=== PATIENT | female | born 1935 | race Caucasian/White ===

== ENCOUNTER 2020-07-15 17:22 | Inpatient (IN) | payer MEDICARE, BC, OTHER ==
--- NOTE | 2020-07-15 18:46 | RAD ---
LEFT FEMUR TWO VIEWS: History: Fall with femur pain. FINDINGS: The bones are diffusely demineralized. There is a spiral type fracture of the distal femoral shaft, m inimally displaced. IMPRESSION: Severe bony demineralization with spiral type fracture of the distal femoral shaft. POS: OFF
--- NOTE | 2020-07-15 18:51 | RAD ---
LEFT TIBIA/FIBULA TWO VIEWS: History: Fall from wheelchair. FINDINGS: The bones are demineralized. I do not see any signs of fracture or dislocation. Ankle joint is not op timally assessed on these views. IMPRESSION: Negative left tibia/fibula. POS: OFF
[2020-07-15 19:35] LABS: #Basophils 0.1 thou/uL (0.0-0.2); #Eosinphils 0.1 thou/uL (0.0-0.7); #Lymphocytes 2.3 thou/uL (1.20-3.40); #Neutrophils 4.6 thou/uL (1.40-6.50); %Basophils 0.7 % (0.0-1.0); %Eosinophils 1.7 % (0.0-10.0); %Lymphocytes 28.2 % (21.0-51.0); %Monocytes 12.5 % (0.0-10.0); %Neutrophils 56.9 % (42.0-75.0); Hemoglobin 7.6 g/dL (12.0-16.0); Mean Corpuscular HGB CONC 31.5 g/dL (32.0-36.0); Mean Corpuscular Hemoglobin 31.3 pg (27.0-31.0); Mean Corpuscular Volume 99.6 fL (78.0-98.0); Mean Platelet Volume 6.8 fL (7.4-10.4); Platelet Count 178 thou/uL (130-400); RBC Distribution Width 14.3 % (11.5-14.5); Red Blood Cell (RBC) Count 2.44 mill/uL (4.20-5.40); White Blood Cell (WBC) Count 8.1 thou/uL (4.8-10.8)
--- NOTE | 2020-07-15 19:35 | RAD ---
AP PELVIS: History: Fall, left distal femur fracture. FINDINGS: The bones are osteopenic. No acute fracture or dislocation identified. IMPRESSION: As above. POS: UMER
--- NOTE | 2020-07-15 19:39 | RAD ---
PORTABLE CHEST ONE VIEW: Date: 07-15-2020 Time: 7:09 p.m. History: Right femur fracture, pre-operative evaluation. FINDINGS: Comparison is made with exam of 01-31-17. The heart size is stable. The aorta is tortuous. The lungs are expanded without lobar consolidation, pneumothoraces, casandra pulmonary edema or pleural effusions. There are surgical clips in the left axil la. IMPRESSION: No acute process. POS: UMER
[2020-07-15 19:40] LABS: Prothrombin Time 13.1 sec (12.0-14.7)
[2020-07-15 19:41] LABS: PTT 35.7 sec (22.9-36.1)
[2020-07-15 19:57] LABS: ALT (SGPT) 10 U/L (8-55); AST (SGOT) 22 U/L (5-34); Albumin 2.9 g/dL (3.4-4.8); Alkaline Phosphatase 61 U/L (40-110); Anion Gap 15 mmol/L (10-20); BUN (Urea Nitrogen) 34 mg/dL (9.8-20.1); Bilirubin, Total 0.5 mg/dL (0.2-1.2); CK (CPK) 145 U/L (29-168); Calc. Creatinine Clearance 0 mL/min (70-130); Calcium 8.3 mg/dL (7.8-10.44); Carbon Dioxide 25 mmol/L (23-31); Chloride 109 mmol/L (98-107); Estimated GFR-MDRD 67; Globulin 2.4 g/dL (2.4-3.5); Glucose 115 mg/dL (83-110); Potassium 4.8 mmol/L (3.5-5.1); Protein, Total 5.3 g/dL (6.0-8.3); Sodium 144 mmol/L (136-145)
[2020-07-15] MEDS ORDERED: Dextrose 5% in Water 1,000 ML IV PRN (20:43)
[2020-07-15] MEDS ORDERED: hydrALAZINE 20 MG/ML VIAL SLOW IVP PRN (20:43)
[2020-07-15] MEDS ORDERED: Ondansetron PF 4 MG/2 ML Vial IVP PRN (20:43)
[2020-07-15] MEDS ORDERED: Morphine 2 MG/ML VIAL SLOW IVP PRN (20:43)
[2020-07-15] MEDS ORDERED: Ondansetron ODT 4 MG TAB PO PRN (20:43)
[2020-07-15] MEDS ORDERED: Dextrose 50% Abboject 50 ML SYRINGE SLOW IVP PRN (20:43)
[2020-07-15] MEDS ORDERED: Insulin Regular 300 UNITS/3 ML VIAL SC PRN ×2 (20:43)
[2020-07-15] MEDS ORDERED: traMADol HCl 50 MG TAB PO PRN (20:51)
[2020-07-15] MEDS ORDERED: Cyclobenzaprine 10 MG TAB PO PRN (20:51)
[2020-07-15 21:08] LABS: Magnesium 2.1 mg/dL (1.6-2.6); Phosphorus 3.7 mg/dL (2.3-4.7)
[2020-07-15] MEDS: Ascorbic Acid 500 mg Chewable Tablet PO SCH (22:24)
[2020-07-15] MEDS: Famotidine 20 MG TAB PO SCH (22:24)
[2020-07-15] MEDS: Senokot S 8.6-50 MG TAB PO SCH (22:24)
[2020-07-15] MEDS: Sodium Chloride 0.9% 1,000 ML IV SCH (22:24)
[2020-07-15] MEDS: Acetaminophen 500 MG TAB PO SCH (22:25)
[2020-07-15] MEDS: Gabapentin 100 MG CAP PO SCH (22:25)
--- NOTE | 2020-07-15 22:54 | HP ---
REQUESTING PHYSICIAN: Dr. Pacheco. CONSULTATIONS: Orthopedic surgery, Dr. Huynh. CHIEF COMPLAINT: Mechanical fall, left lower extremity pain. HISTORY OF PRESENT ILLNESS: This is an 84-year-old female with a past medical history of dementia, hypothyroidism, hypertension, restless legs syndrome, peripheral neuropathy, bipolar disorder, and depression. The patient lives at [facility] and was transferring from her wheelchair to bed when she lost her balance and fell onto her left leg. The patient had no loss of consciousness and did not hit her head. The fall was actually on Thursday and patient has had increased pain since. It was reported that the patient uses a walker to ambulate, although the patient states she does not ambulate and only uses a wheelchair. The patient is oriented to place. The patient unaware of her date and states that her last name as Saurav. The patient currently denies any pain at this time. REVIEW OF SYSTEMS: A 10-point review of systems is negative unless otherwise indicated in the above HPI. ALLERGIES: DENIES. MEDICATIONS: 1. Ativan 1 mg p.r.n. 2. Aricept 10 mg daily. 3. Depakote 125 mg p.o. b.i.d. 4. Aspirin 81 mg daily. 5. Losartan/hydrochlorothiazide 50/12.5 mg daily. 6. Melatonin 3 mg at bedtime. 7. Namenda 10 mg b.i.d. 8. Neurontin 100 mg b.i.d. 9. Potassium chloride 20 mEq daily. 10. Keflex 500 mg 4 times daily. Clindamycin 300 mg 4 times daily. PAST MEDICAL HISTORY: Hypothyroidism, hypertension, restless legs syndrome, dementia, peripheral neuropathy, peripheral vascular disease, bipolar and depression. SOCIAL HISTORY: The patient lives at [facility], denies illicit drug use. Denies smoking history. Denies alcohol use. PAST SURGICAL HISTORY: Unknown. PHYSICAL EXAMINATION: VITAL SIGNS: Temperature 98.5, blood pressure 97/55, pulse 84, respirations 20, 100% SpO2 on room air. GENERAL: Elderly female, pleasantly confused, in no acute distress. HEENT: Head is atraumatic and normocephalic. Mucous membranes are moist, trachea is midline, no cervical spine tenderness. RESPIRATORY: Equal chest rise and fall, bilateral breath sounds clear, no wheezing, rales or rhonchi. CARDIAC: Regular rate, regular rhythm, systolic murmur present. ABDOMEN: Soft, nontender, nondistended. EXTREMITIES: Neurovascularly intact x4, ecchymosis to left lower extremity, mild nonpitting lower leg edema. NEUROLOGIC: GCS 14, -1 for confusion. LABORATORY DATA: WBC 8.1, RBC 2.44, Hbg 7.6, Hct 24.3, Platelets 178, Sodium 144 , Potassium 4.8, BUN 34, Creatinine 0.81 DIAGNOSTICS: Left Tib/Fib no fracture, Left femur impression spiral type fracture of the distal femoral shaft. Pelvis Xray impression, left distal femur fracture, Chest XR impression, stable heart size, aorta is tortuous, no acute process. ASSESSMENT: 1. Status post mechanical fall with delayed presentation. 2. Left distal femur fracture. 3. History of hypertension, dementia, hypothyroidism, restless legs syndrome, peripheral neuropathy, peripheral vascular disease, bipolar and depression. PLAN: Admit to the surgical floor. Supportive care. Pain regimen. Bedrest until evaluation by Orthopedic Surgery. Iron and vitamin C for anemia. Will type and screen patient. The patient will be n.p.o. after midnight for possible surgery for repair with Orthopedic Surgery in the morning. PT and OT to evaluate and treat postop. The plan was discussed with the attending who agrees. Job ID: [id number] MTDD
[2020-07-16 01:40] VITALS: BMI 33.0
[2020-07-16] MEDS: Acetaminophen 500 MG TAB PO SCH ×4 (03:03→20:22)
[2020-07-16] MEDS: Sodium Chloride 0.9% 1,000 ML IV SCH ×3 (05:25→20:22)
[2020-07-16 05:46] LABS: #Eosinphils 0.1 thou/uL (0.0-0.7); #Monocytes 0.6 thou/uL (0.11-0.59); #Neutrophils 2.8 thou/uL (1.40-6.50); %Basophils 0.8 % (0.0-1.0); %Eosinophils 1.4 % (0.0-10.0); %Lymphocytes 36.4 % (21.0-51.0); %Monocytes 10.4 % (0.0-10.0); Hemoglobin 6.9 g/dL (12.0-16.0); Mean Corpuscular HGB CONC 31.3 g/dL (32.0-36.0); Mean Corpuscular Hemoglobin 30.8 pg (27.0-31.0); Mean Corpuscular Volume 98.6 fL (78.0-98.0); Mean Platelet Volume 6.6 fL (7.4-10.4); Platelet Count 164 thou/uL (130-400); RBC Distribution Width 14.2 % (11.5-14.5); Red Blood Cell (RBC) Count 2.23 mill/uL (4.20-5.40); White Blood Cell (WBC) Count 5.5 thou/uL (4.8-10.8)
[2020-07-16 06:06] LABS: Phosphorus 3.3 mg/dL (2.3-4.7)
[2020-07-16 06:15] LABS: Anion Gap 9 mmol/L (10-20); BUN (Urea Nitrogen) 31 mg/dL (9.8-20.1); Calc. Creatinine Clearance 72 mL/min (70-130); Calcium 7.9 mg/dL (7.8-10.44); Carbon Dioxide 27 mmol/L (23-31); Chloride 111 mmol/L (98-107); Estimated GFR-MDRD 75; Glucose 104 mg/dL (83-110); Potassium 4.1 mmol/L (3.5-5.1); Sodium 143 mmol/L (136-145)
[2020-07-16] MEDS ORDERED: Artificial Tear Sol 15 ML BOT EA EYE PRN (08:20)
[2020-07-16] MEDS: Ferrous Sulfate 325 MG TAB PO SCH ×2 (08:37→17:12)
[2020-07-16] MEDS: Senokot S 8.6-50 MG TAB PO SCH ×2 (08:37→20:28)
[2020-07-16] MEDS: Famotidine 20 MG TAB PO SCH ×2 (08:37→20:23)
[2020-07-16] MEDS: Ascorbic Acid 500 mg Chewable Tablet PO SCH ×2 (08:38→20:23)
[2020-07-16] MEDS: Gabapentin 100 MG CAP PO SCH ×3 (08:50→20:23)
[2020-07-16] MEDS: Polyethylene Glycol 3350 17 GM Packet PO SCH (08:50)
[2020-07-16] MEDS: DULoxetine 60 MG CAP PO SCH (09:52)
[2020-07-16] MEDS: Divalproex Sodium 250 MG (DR) TAB PO SCH ×2 (09:52→20:28)
[2020-07-16] MEDS: Tamsulosin HCl 0.4 MG CAP PO SCH (09:52)
[2020-07-16 10:21] LABS: Bilirubin Negative (Negative); Blood, Urine 1+ (Negative); Clarity Turbid (Clear); Glucose, Urine (Dipstick) Normal (Negative); Ketone, Urine Trace mg/dL (Negative); Leukocyte 500 Leu/uL (Negative); Nitrite 2+ (Negative); Protein, Urine (Dipstick) 10 mg/dL (Neg-Trace); Specific Gravity, Urine 1.016 (1.002-1.036)
[2020-07-16] MEDS ORDERED: PROPOFOL 200 MG/20 ML VIAL ONE (10:33)
[2020-07-16] MEDS ORDERED: EPHEDRINE 25 MG/5 ML SYRINGE ONE (10:33)
[2020-07-16] MEDS ORDERED: PHENYLEPHRINE-NS 100 MCG/ML 10 ML SYRINGE ONE (10:33)
[2020-07-16] MEDS: traMADol HCl 50 MG TAB PO PRN ×2 (10:54→17:17)
[2020-07-16 10:57] LABS: Bacteria/HPF 4+ HPF (None Seen)
[2020-07-16 11:42] LABS: SARS-CoV-2 MS2 Positive; SARS-CoV-2 N Gene Negative; SARS-CoV-2 S Gene Negative; SARS-CoV-2 by NAA Not Detected (NotDetected); SARS-CoV-2 orf1ab Negative
[2020-07-16] MEDS ORDERED: Neomycin-Polymyxin 1 ML AMP ONE ×2 (11:46→12:53)
[2020-07-16] MEDS ORDERED: Bupivacaine HCl 0.5%/Epinephrine 1:200,000/PF 30 ml Vial ONE (13:51)
[2020-07-16] MEDS ORDERED: Promethazine HCl 25 MG/ML VIAL SLOW IVP PRN (14:11)
[2020-07-16] MEDS ORDERED: Promethazine HCl 25 MG/ML VIAL IM PRN (14:11)
[2020-07-16] MEDS ORDERED: Ondansetron HCl/PF 4 MG/2 ML Vial IVP PRN (14:11)
[2020-07-16] MEDS ORDERED: Ondansetron ODT 4 MG TAB PO PRN (14:17)
[2020-07-16] MEDS ORDERED: Cepastat Lozenges 1 LOZ PO PRN (14:17)
[2020-07-16] MEDS ORDERED: Ondansetron PF 4 MG/2 ML Vial IVP PRN (14:17)
[2020-07-16] MEDS ORDERED: Fleet Enema 133 ML BOT PR PRN (14:17)
[2020-07-16] MEDS ORDERED: Bisacodyl 10 MG SUPP PR PRN (14:17)
[2020-07-16] MEDS ORDERED: Milk Of Magnesia 30 ML UDCUP PO PRN (14:17)
[2020-07-16] MEDS ORDERED: Fentanyl 100 MCG/2 ML VIAL ONE (14:28)
--- NOTE | 2020-07-16 14:52 | RAD ---
LEFT FEMUR 2 VIEWS: HISTORY: ORIF left femur, left femoral fracture. FINDINGS/IMPRESSION: There has been interval reduction and internal fixation of the distal femoral shaft fracture since th e previous day's exam with placement of intramedullary tenisha and interlocking screws. POS: OFF
--- NOTE | 2020-07-16 15:40 | PRG ---
DATE OF SERVICE: 07/16/2020 SUBJECTIVE: The patient was seen during morning rounds on the surgical floor. The patient is hospital day #2, status post ground level fall with delayed presentation. The patient sustained a left distal femur fracture. The patient is currently awake, alert, in moderate distress due to pain. The patient has been n.p.o. since midnight. OBJECTIVE: VITAL SIGNS: Temperature 98.5, pulse rate 83, respirations are 16, SpO2 of 100% on room air, and blood pressure 120/70. GENERAL: Elderly female, awake and alert. HEENT: Unremarkable. RESPIRATORY: No distress, equal chest rise and fall. CARDIAC: Regular rate and regular rhythm. ABDOMEN: Soft, nontender, and nondistended. EXTREMITIES: Neurovascularly intact x4. DIAGNOSTIC STUDIES: LABORATORY RESULTS: WBC 5.5, RBC 2.23, hemoglobin 6.9, hematocrit 22.0, and platelets are 164. Sodium 143, potassium 4.1, chloride 111 , BUN 31, creatinine 0.74, estimated GFR 75. Glucose 104, calcium 7.9, phosphorus 3.3, and magnesium 2.0. Urinalysis, 4+ bacteria, positive squamous epithelial cells, positive leukocyte esterase. We will send for culture. COVID-19 not detected. There is no diagnostics to review today. IMPRESSION: 1. Status post mechanical fall with delayed presentation. 2. Left distal femur fracture. 3. History of hypertension, dementia, hypothyroidism, restless legs syndrome, peripheral neuropathy, peripheral vascular disease, bipolar and depression. 4. UTI present on admission PLAN: Continue n.p.o. status. We will transfuse the patient 1 unit packed red blood cells for anemia. Continue supportive care and pain regimen. The patient will be going to the OR sometime this morning for repair. We will continue iron and vitamin C for anemia. We will have PT and OT evaluate and treat postop. We will repeat labs later this evening to see if the patient's hemoglobin is stable postop. Plan was discussed with the attending who agrees. Job ID: [id number] MTDD
[2020-07-16] MEDS: Ketorolac Tromethamine 30 MG/ML VIAL IVP SCH ×2 (17:20→23:44)
[2020-07-16 18:19] LABS: Hemoglobin 9.4 g/dL (12.0-16.0); Mean Corpuscular HGB CONC 32.9 g/dL (32.0-36.0); Mean Corpuscular Hemoglobin 31.7 pg (27.0-31.0); Mean Corpuscular Volume 96.3 fL (78.0-98.0); Mean Platelet Volume 6.5 fL (7.4-10.4); Platelet Count 163 thou/uL (130-400); RBC Distribution Width 14.5 % (11.5-14.5); Red Blood Cell (RBC) Count 2.96 mill/uL (4.20-5.40); White Blood Cell (WBC) Count 10.8 thou/uL (4.8-10.8)
--- NOTE | 2020-07-16 19:27 | OP ---
DATE OF PROCEDURE: 07/16/2020 PREOPERATIVE DIAGNOSIS: Comminuted fracture of the left distal femur. POSTOPERATIVE DIAGNOSIS: Comminuted fracture of the left distal femur. PROCEDURE PERFORMED: Interlocking retrograde intramedullary rodding of the left distal femoral shaft. ANESTHESIA: General. DESCRIPTION OF PROCEDURE: The patient was given preoperative IV antibiotics, taken to the operating room, placed in a supine position, satisfactory general anesthesia was performed. The left lower extremity was sterilely prepped and draped in usual fashion. A longitudinal incision was made over the anterior aspect of the left knee approximately 5 inches in length. A medial parapatellar arthrotomy was performed. Initially, a guidewire was placed into the intercondylar notch just anterior to the intercondylar notch and it was overreamed with 13-mm reamer. A guide pin was then placed into the distal aspect of the femur crossing the segmental fracture of the distal femoral shaft and into the proximal aspect of the shaft. Appropriate length screw was measured. The canal was overreamed to 14.5 mm and a Synthes retrograde nail that measured 300 mm in length, 13 mm in diameter was inserted into the distal aspect of the femur crossing the fractures and into the proximal aspect of the femur. Two 5.0 locking screws were inserted from lateral to medial using the guide still attached to the tenisha and a 10 mm was inserted. Two additional interlocking 5.0 screws were placed from anterior to posterior under fluoroscopic visualization in the proximal aspect of the femur. This provided excellent stability both with compression and rotation and good reduction of the fractures. The wounds were then irrigated copiously with antibiotic solution using the high-speed operating room surgical technician and the wound was closed using #2 Vicryl for the retinacular tissue, 0 Vicryl for the fat and subcutaneous tissue, and skin was closed with skin dolores. The small incisions for the screws were closed with skin dolores. The wound on the knee was then infiltrated with a total of 30 mL of 0.5% Marcaine with epinephrine. Sterile dressing was applied. The patient was awakened, extubated, and transferred to recovery room in stable condition. ESTIMATED BLOOD LOSS: 400 mL. COMPLICATIONS: None. Job ID: [id number]
[2020-07-16] MEDS: CEFAZOLIN 2 GM in Premix Bag 1 BAG IVPB SCH (20:22)
[2020-07-16] MEDS: Ferrous Gluconate 324 MG TAB PO SCH (20:23)
[2020-07-16] MEDS: Donepezil HCl 10 MG TAB PO SCH (20:27)
--- NOTE | 2020-07-16 20:31 | CON ---
DATE OF CONSULTATION: 07/16/2020 HISTORY OF PRESENT ILLNESS: Ms. Trevizo is an 84-year-old female, who lives at [facility]. The patient has history of dementia, hypertension, hypothyroidism, peripheral neuropathy, bipolar disorder, and depression. The patient reportedly gets around mainly in a wheelchair but is able to transfer in and out of bed and into the wheelchair. The patient was trying to get in her wheelchair on Thursday and fell and has had pain in her left thigh and knee since then. The pain increased. The patient was brought to the emergency room and x-rays revealed a fracture of the left femoral shaft with a large butterfly fragment. ALLERGIES: NONE. CURRENT MEDICATIONS: 1. Ativan. 2. Aricept. 3. Depakote. 4. Aspirin. 5. Losartan. 6. Hydrochlorothiazide. 7. Melatonin. 8. Namenda. 9. Neurontin. 10. Potassium chloride. 11. Keflex. 12. Clindamycin. SOCIAL HISTORY: The patient lives at [facility]. She does not use tobacco, alcohol, or illegal drugs. PHYSICAL EXAMINATION: GENERAL: The patient is a pleasant female, but unable to communicate well. VITAL SIGNS: She is afebrile. Vital signs are stable. Blood pressure 128/70, pulse 91, respiratory rate 16, and O2 saturation 97% on room air. EXTREMITIES: The left lower extremity has swelling. Any intensive movement of the left lower extremity causes pain. She is able to flex and extend her left ankle and has some range of motion of her toes. LABORATORY DATA: Admission laboratory shows hemoglobin 7.6, hematocrit 24.3. Hemoglobin this morning is 6.9 with hematocrit 22. Chloride is slightly elevated at 111, BUN 31, and creatinine 0.74. UA shows 4+ urine bacteria, 2+ nitrite, 1+ blood. She is COVID-19 negative. IMPRESSION: 1. Comminuted fracture of the left distal femoral shaft with a butterfly fragment. 2. Anemia secondary to acute blood loss from the fracture and probable chronic anemia, probably dietary in nature. 3. Hypertension. 4. Dementia. 5. Hypothyroidism. 6. Peripheral neuropathy. 7. Peripheral vascular disease. 8. Bipolar disease. 9. Depression. PLAN: The patient will need to have transfusion of blood as far as her left femur is concerned in order to improve nursing care and in order to help get the patient out of bed. She will require open reduction and internal fixation. Plan on using a retrograde interlocking intramedullary tenisha. This was discussed with her niece, who has medical power of health care attorney, who lives up in [facility]. Agreed to the procedure and we will proceed with the surgery as soon as her packed red blood cells have began. Job ID: [id number]
[2020-07-17] MEDS: CEFAZOLIN 2 GM in Premix Bag 1 BAG IVPB SCH (03:30)
[2020-07-17] MEDS: Acetaminophen 500 MG TAB PO SCH ×4 (03:30→20:47)
[2020-07-17] MEDS: Ketorolac Tromethamine 30 MG/ML VIAL IVP SCH (05:01)
[2020-07-17] MEDS: Levothyroxine Sodium 50 MCG TAB PO SCH (05:03)
[2020-07-17 05:19] LABS: Hemoglobin 7.9 g/dL (12.0-16.0); Mean Corpuscular HGB CONC 31.7 g/dL (32.0-36.0); Mean Corpuscular Hemoglobin 30.5 pg (27.0-31.0); Mean Platelet Volume 6.7 fL (7.4-10.4); Platelet Count 137 thou/uL (130-400); RBC Distribution Width 14.5 % (11.5-14.5); Red Blood Cell (RBC) Count 2.59 mill/uL (4.20-5.40)
[2020-07-17 05:44] LABS: Anion Gap 15 mmol/L (10-20); BUN (Urea Nitrogen) 28 mg/dL (9.8-20.1); Calc. Creatinine Clearance 65 mL/min (70-130); Calcium 7.1 mg/dL (7.8-10.44); Carbon Dioxide 19 mmol/L (23-31); Chloride 112 mmol/L (98-107); Estimated GFR-MDRD 66; Glucose 124 mg/dL (83-110); Magnesium 1.8 mg/dL (1.6-2.6); Phosphorus 3.5 mg/dL (2.3-4.7); Potassium 4.2 mmol/L (3.5-5.1); Sodium 142 mmol/L (136-145)
[2020-07-17] MEDS ORDERED: Magnesium Sulfate 2 GM in Sodium Chloride 0.9% 100 ML IVPB SCH (07:45)
[2020-07-17] MEDS ORDERED: Magnesium 2 GM/50 ML 2 GM in Premix Bag 1 BAG IVPB SCH (08:00)
[2020-07-17] MEDS: Famotidine 20 MG TAB PO SCH ×2 (08:41→20:48)
[2020-07-17] MEDS: Tamsulosin HCl 0.4 MG CAP PO SCH (08:41)
[2020-07-17] MEDS: DULoxetine 60 MG CAP PO SCH (08:41)
[2020-07-17] MEDS: Senokot S 8.6-50 MG TAB PO SCH ×2 (08:41→20:48)
[2020-07-17] MEDS: Ferrous Gluconate 324 MG TAB PO SCH (08:41)
[2020-07-17] MEDS: Ferrous Sulfate 325 MG TAB PO SCH ×2 (08:42→18:03)
[2020-07-17] MEDS: Ascorbic Acid 500 mg Chewable Tablet PO SCH ×2 (08:42→20:47)
[2020-07-17] MEDS: Gabapentin 100 MG CAP PO SCH ×3 (08:42→20:48)
[2020-07-17] MEDS: Divalproex Sodium 250 MG (DR) TAB PO SCH ×2 (08:42→20:47)
[2020-07-17] MEDS: Aspirin 81 mg Enteric Coated Tablet PO SCH ×2 (08:46→20:47)
[2020-07-17] MEDS: cefTRIAXone\\ROCEPHIN 1 GM in Sodium Chloride 0.9% 100 ML IVPB SCH (09:31)
[2020-07-17] MEDS: Polyethylene Glycol 3350 17 GM Packet PO SCH (09:32)
[2020-07-17] MEDS: Multivitamin W/ Minerals 1 TAB PO SCH (09:32)
[2020-07-17] MEDS ORDERED: Ibuprofen 200 MG TAB PO PRN (09:49)
--- NOTE | 2020-07-17 14:35 | EKG ---
Test Reason : Blood Pressure : / mmHG Vent. Rate : 085 BPM Atrial Rate : 085 BPM P-R Int : 150 ms QRS Dur : 074 ms QT Int : 384 ms P-R-T Axes : 036 -04 085 degrees QTc Int : 456 ms Normal sinus rhythm Normal ECG Confirmed by GÓMEZ COTA DO [id number]), map editor KEL CONNER ([id number] on 07/17/2020 2:34:26 PM Referred By: Confirmed By:GÓMEZ COTA DO
--- NOTE | 2020-07-17 15:04 | PRG ---
DATE OF SERVICE: 07/17/2020 SUBJECTIVE: The patient is 1 day status post interlocking retrograde intramedullary rodding of the left distal femur. The patient has worked with Physical Therapy today. She states that she has good pain control. OBJECTIVE: VITAL SIGNS: Last vital signs; temperature 98, pulse 73, respiratory rate 16, blood pressure 115/78, and O2 saturation 100% on 2 L. LABORATORY DATA: This morning showed a white count of 7, hemoglobin 7.9, hematocrit 24.8. Urine culture and sensitivity shows presumptive E coli. The left lower extremity is neurovascularly intact. The patient will continue with her antibiotics. She will work with Physical and Occupational Therapy. She can partially weight bear on the left lower extremity. Continue to monitor her hemoglobin and hematocrit. Job ID: [id number]
--- NOTE | 2020-07-17 16:33 | PRG ---
DATE OF SERVICE: 07/17/2020 SUBJECTIVE: The patient was seen on the surgical floor during morning rounds with Dr. Manning. The patient is postop day #1, status post interlocking retrograde intramedullary rodding of her left distal femoral shaft fracture by Dr. Huynh. The patient's pain is well controlled at this time. The patient ate all of her breakfast. The patient voices no complaints or concerns. The patient's urine culture did come back positive for E coli. The patient's urinary output is adequate for age and weight. OBJECTIVE: VITAL SIGNS: Temperature 97.7, pulse 75, respirations 16, SpO2 of 96% on 2 L nasal cannula, blood pressure 112/62. GENERAL: Well-appearing elderly female, awake, alert, in no distress. RESPIRATORY: Equal chest rise and fall, respirations are even and nonlabored. CARDIAC: Regular rate, regular rhythm. ABDOMEN: Soft, nontender, nondistended. EXTREMITIES: Neurovascularly intact x4, left thigh dressing is clean, dry, and intact. LABORATORY DATA: WBC 7.0, RBC 2.59, hemoglobin 7.9, hematocrit 24.8. Sodium 142, potassium 4.2, chloride 112, carbon dioxide 19, BUN 28, creatinine 0.82, estimated GFR 66, glucose 124, calcium 7.1, phosphorus 3.8, magnesium 1.8. Urine culture, presumptive Escherichia coli, susceptibilities to follow. There are no new diagnostics to evaluate. ASSESSMENT: 1. Status post mechanical fall with delayed presentation. 2. Postoperative day #1, repair of left distal femur fracture. 3. Urinary tract infection, Escherichia coli present on admission. 4. History of hypertension, dementia, hypothyroidism, restless legs syndrome, peripheral neuropathy, peripheral vascular disease, bipolar and depression. PLAN: Regular diet as tolerated. Start the patient on VTE prophylaxis with aspirin b.i.d. We will discontinue IV fluids since the patient is eating and drinking well. PT and OT to evaluate and treat. Rocephin 1 g x3 days for UTI positive for E coli, pending susceptibility. We will replace electrolytes. The patient will likely go back to [facility] in the next 24 to 48 hours. Again, the patient was examined by Dr. Manning during morning rounds. Job ID: [id number]
[2020-07-17] MEDS: Sodium Chloride 0.9% 1,000 ML IV SCH (18:26)
[2020-07-17] MEDS: Donepezil HCl 10 MG TAB PO SCH (20:48)
--- NOTE | 2020-07-17 22:51 | PRG ---
DATE OF SERVICE: 07/17/2020 SUBJECTIVE: The patient was seen this morning during rounds. She was sitting up in bed with no signs of acute distress. She reported no pain at the time of my evaluation and was watching television. Reported she was going to go to sleep soon. Nursing reported no acute events. OBJECTIVE: VITAL SIGNS: Temperature 97.9, pulse 73, respirations 18, oxygen saturation 99% on 2 L nasal cannula, blood pressure 136/74. GENERAL: Well-appearing elderly female, sitting up in bed with no signs of acute distress. PULMONARY: Equal chest rise and fall. No signs of acute respiratory distress. CARDIAC: Regular rate and rhythm. NEUROLOGIC: GCS is 14 to 15, -1 for verbal. ASSESSMENT: 1. Status post ground level fall. 2. Left distal femur fracture, status post repair. 3. Escherichia coli urinary tract infection, uncomplicated. 4. History of anemia, dementia, hypothyroidism, resting leg syndrome, hypertension, bipolar disorder, depression, peripheral neuropathy. PLAN: Continue current regular diet. Discontinue Charles in the morning. Continue Rocephin as the Escherichia coli is sensitive to Rocephin. The patient is pending return back to [facility]. Repeat blood work in the morning. Possible discharge there tomorrow. Job ID: [id number]
[2020-07-18] MEDS: Acetaminophen 500 MG TAB PO SCH ×2 (04:09→10:04)
[2020-07-18] MEDS: Levothyroxine Sodium 50 MCG TAB PO SCH (04:09)
[2020-07-18 05:40] LABS: Anion Gap 13 mmol/L (10-20); BUN (Urea Nitrogen) 25 mg/dL (9.8-20.1); Calc. Creatinine Clearance 77 mL/min (70-130); Calcium 7.2 mg/dL (7.8-10.44); Carbon Dioxide 21 mmol/L (23-31); Chloride 113 mmol/L (98-107); Estimated GFR-MDRD 81; Glucose 106 mg/dL (83-110); Magnesium 2.4 mg/dL (1.6-2.6); Phosphorus 2.1 mg/dL (2.3-4.7); Potassium 3.7 mmol/L (3.5-5.1); Sodium 143 mmol/L (136-145)
[2020-07-18] MEDS ORDERED: Potassium Phosphate 30 MMOL in Sodium Chloride 0.9% 250 ML 250 ML IVPB SCH (07:45)
[2020-07-18 07:57] LABS: Hemoglobin 8.5 g/dL (12.0-16.0); Mean Corpuscular HGB CONC 32.6 g/dL (32.0-36.0); Mean Corpuscular Hemoglobin 30.8 pg (27.0-31.0); Mean Corpuscular Volume 94.5 fL (78.0-98.0); Mean Platelet Volume 7.8 fL (7.4-10.4); Platelet Count 110 thou/uL (130-400); RBC Distribution Width 14.5 % (11.5-14.5); Red Blood Cell (RBC) Count 2.76 mill/uL (4.20-5.40); White Blood Cell (WBC) Count 8.6 thou/uL (4.8-10.8)
[2020-07-18] MEDS: Divalproex Sodium 250 MG (DR) TAB PO SCH (10:02)
[2020-07-18] MEDS: Senokot S 8.6-50 MG TAB PO SCH (10:03)
[2020-07-18] MEDS: Multivitamin W/ Minerals 1 TAB PO SCH (10:03)
[2020-07-18] MEDS: Aspirin 81 mg Enteric Coated Tablet PO SCH (10:03)
[2020-07-18] MEDS: Famotidine 20 MG TAB PO SCH (10:03)
[2020-07-18] MEDS: DULoxetine 60 MG CAP PO SCH (10:03)
[2020-07-18] MEDS: Polyethylene Glycol 3350 17 GM Packet PO SCH (10:03)
[2020-07-18] MEDS: Gabapentin 100 MG CAP PO SCH (10:04)
[2020-07-18] MEDS: Ferrous Sulfate 325 MG TAB PO SCH (10:04)
[2020-07-18] MEDS: Tamsulosin HCl 0.4 MG CAP PO SCH (10:05)
[2020-07-18] MEDS: cefTRIAXone\\ROCEPHIN 1 GM in Sodium Chloride 0.9% 100 ML IVPB SCH (10:05)
[2020-07-18] MEDS: Ascorbic Acid 500 mg Chewable Tablet PO SCH (10:05)
[2020-07-18 11:24] VITALS: TEMP 98.5
[2020-07-18] MEDS ORDERED: Acetaminophen 325 MG TAB PO PRN (11:27)
[2020-07-18] MEDS ORDERED: Acetaminophen/Codeine 30-300mg Tablet PO PRN (11:27)
[2020-07-18] MEDS ORDERED: Ibuprofen 600 MG TAB PO SCH (15:00)
[2020-07-18 15:36] VITALS: BP 115/73
--- NOTE | 2020-07-18 19:12 | PRG ---
DATE OF SERVICE: 07/18/2020 SUBJECTIVE: Ms. Trevizo reports no pain in the left lower extremity. She is lying in bed, appears to be very happy. OBJECTIVE: VITAL SIGNS: The patient has been afebrile. Vital signs are stable. EXTREMITY: Left lower extremity is neurovascularly intact. PLAN: The patient will continue to work with Physical and Occupational Therapy. She is scheduled to be discharged possibly tomorrow. She should follow up in my office in 2 weeks. Job ID: [id number]
[2020-07-18] MEDS ORDERED: rOPINIRole HCl 2 MG TAB PO SCH (21:00)
[2020-07-18] MEDS ORDERED: Gabapentin 100 MG CAP PO SCH (21:00)
[2020-07-19] MEDS ORDERED: Potassium Chloride 20 MEQ TAB PO SCH (08:00)
[2020-07-19] MEDS ORDERED: Ferrous Sulfate 325 MG TAB PO SCH (08:00)
[2020-07-19] MEDS ORDERED: Aspirin Chewable 81 MG TAB PO SCH (09:00)
[2020-07-19] MEDS ORDERED: Losartan 25 MG TAB PO SCH (09:00)
== END 2020-07-18 17:15 | DRG 481 ==
LOC: ERS 17:22 → SURG B 20:16
PROVIDERS: ADMIT Surgery; ATTEND Surgery
PROC: 0QSC06Z Reposition Left Lower Femur with Intramedullary Internal Fixation Device, Open Approach (ICD-10-PCS; principal; 2020-07-16)
PROC: 30233N1 Transfusion of Nonautologous Red Blood Cells into Peripheral Vein, Percutaneous Approach (ICD-10-PCS; 2020-07-16)
DX: S72.402A Unspecified fracture of lower end of left femur, initial encounter for closed fracture (principal); N39.0 Urinary tract infection, site not specified; D62 Acute posthemorrhagic anemia; E03.9 Hypothyroidism, unspecified; I10 Essential (primary) hypertension; G25.81 Restless legs syndrome; F03.90 Unspecified dementia, unspecified severity, without behavioral disturbance, psychotic disturbance, mood disturbance, and anxiety; I73.9 Peripheral vascular disease, unspecified; G62.9 Polyneuropathy, unspecified; B96.20 Unspecified Escherichia coli [E. coli] as the cause of diseases classified elsewhere; Z20.828 Contact with and (suspected) exposure to other viral communicable diseases; F31.9 Bipolar disorder, unspecified; Z79.899 Other long term (current) drug therapy; Z79.82 Long term (current) use of aspirin; W18.30XA Fall on same level, unspecified, initial encounter
CPT/HCPCS: 36415; 36416; 36430; 71045; 72170; 76000; 80048; 80053; 81001; 82550; 83735; 84100; 84484; 85025; 85027; 85610; 85730; 86850; 86900; 86901; 87077; 87086; 87186; 87635; 93005; C1713; G0390; J0670; J0690; J0696; J1885; J2270; J2704; J3010; J3475; J3490; J7050; P9016; U0003